=== PATIENT | female | born 1955 | race Caucasian/White ===

== ENCOUNTER 2017-07-16 12:16 | Inpatient (IN) ==
[2017-07-16] MEDS ORDERED: SODIUM CHLORIDE 0.9% 1,000 ML IV STA (12:40)
[2017-07-16] MEDS ORDERED: methylPREDNISolone SOD SUC 125 MG/2 ML VIAL IV STA (12:40)
[2017-07-16] MEDS ORDERED: LEVOFLOXACIN INJ 750 MG in PREMIX 1 EACH IV STA (12:40)
[2017-07-16] MEDS ORDERED: ALBUTEROL/IPRATROPIUM 3 ML NEB RESP TX STA (12:40)
[2017-07-16] MEDS ORDERED: methylPREDNISolone SOD SUC 125 MG/2 ML VIAL ONE (13:02)
[2017-07-16] MEDS ORDERED: ORPHENADRINE 60 MG/2 ML VIAL IV STA (13:31)
[2017-07-16] MEDS ORDERED: ORPHENADRINE 60 MG/2 ML VIAL ONE (13:32)
[2017-07-16] MEDS ORDERED: LEVOFLOXACIN INJ 150 ML IV ONE (13:35)
[2017-07-16 13:52] LABS: Basophils # 0.1 10*3/uL (0.0-0.2); Basophils % 0.5 % (0.0-0.8); Eosinophils # 0.5 10*3/uL (0.0-0.87); Eosinophils % 4.3 % (0.00-10.9); Hematocrit 29.4 VOL% (35.7-47.0); Hemoglobin 10.5 GM/DL (12.0-16.0); Immature Granulocytes % 2.1 %; Immature Granulocytes Absolute 0.26 #; Lymphocytes # 1.6 10*3/uL (1.4-4.0); Lymphocytes % 12.6 % (21.3-54.2); Mean Corpuscular HGB Conc 35.7 GM/DL (32-36); Mean Corpuscular Hemoglobin 31 PG (27-34); Mean Corpuscular Volume 85.5 FL (87-102); Mean Platelet Volume 9.4 FL (9.6-12.0); Monocytes # 1.3 10*3/uL (0.11-0.8); Monocytes % 10.4 % (1.7-12.7); Neutrophils # 8.7 10*3/uL (1.4-7.4); Neutrophils % 70.1 % (38.7-73.9); Platelet Count 428 T/CUMM (130-400); Red Blood Count 3.44 MC/CUMM (3.8-5.5); Red Cell Distribution Width 17.2 % (9.3-17.3); White Blood Count 12.4 T/CUMM (4-12)
[2017-07-16 13:59] LABS: INR 1.3; PT Patient Result 13.7 SECS
[2017-07-16 14:00] LABS: Apearance,Urine Slightly Hazy (Clear); Bacteria,Urine Occasional /HPF (Few); Bilirubin,Urine Negative (Negative); Blood, Urine Negative (Negative); Glucose,Urine (UA) Negative (Negative); Hyaline Casts,Urine 9 /LPF (0-3); Ketones,Urine Negative (Negative); Mucus,Urine Occasional /LPF (Occasional); Nitrite,Urine Negative (Negative); Protein,Urine Negative; RBC,Urine 2 /HPF (0-4); Squamous Epithelial Cell,Urine Occasional /HPF (0-10); Urine Color Yellow (Yellow); Urine Specific Gravity 1.014 (1.001-1.035); Urine Urobilinogen < 2.0 EU/DL (0.2-1.0); WBC,Urine 7 /HPF (0-6)
[2017-07-16 14:21] LABS: Alanine Aminotransferase 29 U/L (13-56); Albumin 1.5 G/DL (3.4-5.0); Alkaline Phosphatase 168 U/L (45-117); Amylase 18 U/L (25-115); Aspartate Amino Transferase 71 U/L (0-37); Blood Urea Nitrogen 74 MG/DL (7-18); Calcium 8.1 MG/DL (8.5-10.1); Glucose 83 MG/DL (74-106); Osmolality,Calculated 278.9 MOS/KG (273-304); Sodium 129 MMOL/L (136-145); Total Protein 6.3 G/DL (6.4-8.3); Troponin I Only < 0.015 NG/ML (0.00-0.045)
[2017-07-16 14:30] LABS: Lactic Acid 2.5 MMOL/L (0.4-2.0)
[2017-07-16 14:47] LABS: Potassium 6.7 MMOL/L (3.5-5.1)
[2017-07-16] MEDS ORDERED: CALCIUM CHLORIDE 1,000 MG/10 ML SYRINGE IV STA (14:48)
[2017-07-16] MEDS ORDERED: ALBUTEROL NEB SOLN 5 MG/ML 20 ML/BOTTLE CONT NEB STA (14:48)
[2017-07-16] MEDS ORDERED: DEXTROSE 50% 25 GM/50 ML VIAL IV STA (14:48)
[2017-07-16] MEDS ORDERED: INSULIN REGULAR 100 UNIT/ML IV STA (14:50)
[2017-07-16] MEDS ORDERED: SODIUM CHLORIDE 0.9% 2,000 ML IV STA (14:51)
[2017-07-16] MEDS ORDERED: CALCIUM CHLORIDE 1,000 MG/10 ML SYRINGE IV ONE (14:59)
[2017-07-16] MEDS ORDERED: DEXTROSE 50% 25 GM/50 ML SYRINGE IV ONE (14:59)
[2017-07-16] MEDS ORDERED: INSULIN REGULAR 100 UNIT/ML ONE (15:00)
[2017-07-16] MEDS ORDERED: SODIUM POLYSTYRENE SULFATE 15 GM/60 ML BOTTLE PO ONE (16:10)
[2017-07-16] MEDS ORDERED: hydrOXYzine HCL 10 MG TABLET PO PRN (16:12)
[2017-07-16] MEDS: ALBUTEROL 1.25 MG/3 ML NEB RESP TX SCH ×2 (19:25→23:56)
[2017-07-16] MEDS: SODIUM CHLORIDE 0.9% 1,000 ML IV SCH (19:39)
[2017-07-16 20:12] LABS: Lactic Acid 6.4 MMOL/L (0.4-2.0)
[2017-07-16] MEDS: NYSTATIN 500,000 UNIT/5 ML UDCUP PO SCH (20:46)
[2017-07-16] MEDS: MONTELUKAST 10 MG TABLET PO SCH (20:55)
[2017-07-16] MEDS: BUDESONIDE/FORMOTEROL 160-4.5 INHALER 6 GM INH SCH (20:55)
[2017-07-16 23:39] LABS: Lactic Acid 6.1 MMOL/L (0.4-2.0)
[2017-07-17 02:47] LABS: Basophils % 0.2 % (0.0-0.8); Eosinophils % 0.1 % (0.00-10.9); Hematocrit 29.3 VOL% (35.7-47.0); Immature Granulocytes % 4.2 %; Immature Granulocytes Absolute 0.58 #; Lymphocytes # 1.1 10*3/uL (1.4-4.0); Lymphocytes % 8.2 % (21.3-54.2); Mean Corpuscular HGB Conc 34.1 GM/DL (32-36); Mean Corpuscular Hemoglobin 30 PG (27-34); Mean Corpuscular Volume 87.5 FL (87-102); Mean Platelet Volume 9.2 FL (9.6-12.0); Monocytes # 0.3 10*3/uL (0.11-0.8); Monocytes % 1.9 % (1.7-12.7); Neutrophils # 11.8 10*3/uL (1.4-7.4); Neutrophils % 85.4 % (38.7-73.9); Platelet Count 417 T/CUMM (130-400); Red Blood Count 3.35 MC/CUMM (3.8-5.5); Red Cell Distribution Width 17.2 % (9.3-17.3); White Blood Count 13.8 T/CUMM (4-12)
[2017-07-17 02:56] LABS: Calcium 8.2 MG/DL (8.5-10.1); Osmolality,Calculated 281.8 MOS/KG (273-304)
[2017-07-17 02:59] LABS: Potassium 6.9 MMOL/L (3.5-5.1)
[2017-07-17] MEDS ORDERED: SODIUM POLYSTYRENE SULFATE 15 GM/60 ML BOTTLE PO ONE ×2 (03:06→07:45)
[2017-07-17 03:10] LABS: Band Neutrophils 2 % (0-10); Lymphocytes 10 % (20-55); Segmented Neutrophils 87 % (50-85)
[2017-07-17 03:13] LABS: Giant Platelets Few; Hypochromasia Slight; Platelet Estimate Increased; Polychromasia Few; Total Cells Counted 100
[2017-07-17] MEDS: SODIUM CHLORIDE 0.9% 1,000 ML IV SCH (03:41)
[2017-07-17] MEDS: ALBUTEROL 1.25 MG/3 ML NEB RESP TX SCH ×5 (04:30→19:13)
[2017-07-17] MEDS: ONDANSETRON 4 MG/2 ML VIAL IV PRN ×2 (06:04→10:38)
[2017-07-17] MEDS ORDERED: SODIUM POLYSTYRENE SULFATE 15 GM/60 ML BOTTLE RECTAL ONE (08:47)
[2017-07-17] MEDS: PROMETHAZINE 25 MG/1 ML VIAL IM PRN ×2 (08:59→15:59)
[2017-07-17] MEDS ORDERED: PANTOPRAZOLE 40 MG TABLET PO SCH (09:00)
[2017-07-17] MEDS: buPROPion SR 100 MG TABLET PO SCH (09:37)
[2017-07-17] MEDS: SERTRALINE 50 MG TABLET PO SCH (09:37)
[2017-07-17] MEDS: FLUTICASONE 50 MCG NASAL SPRAY 16 GM BOTTLE BOTH NARES SCH (09:38)
[2017-07-17] MEDS: BUDESONIDE/FORMOTEROL 160-4.5 INHALER 6 GM INH SCH ×2 (09:38→20:51)
[2017-07-17] MEDS: NYSTATIN 500,000 UNIT/5 ML UDCUP PO SCH ×2 (11:28→20:51)
[2017-07-17] MEDS: SODIUM CHLORIDE 23.4% CONC INJ 38.5 MEQ, SODIUM BICARB INJ 100 MEQ in STERILE WATER INJ... IV SCH (15:52)
[2017-07-17] MEDS: MONTELUKAST 10 MG TABLET PO SCH (20:51)
[2017-07-17] MEDS ORDERED: FAMOTIDINE 20 MG TABLET PO SCH (21:00)
[2017-07-18] MEDS: ALBUTEROL 1.25 MG/3 ML NEB RESP TX SCH ×5 (00:03→15:06)
[2017-07-18] MEDS: SODIUM CHLORIDE 23.4% CONC INJ 38.5 MEQ, SODIUM BICARB INJ 100 MEQ in STERILE WATER INJ... IV SCH (00:14)
[2017-07-18] MEDS: MORPHINE 4 MG/1 ML VIAL IV PRN ×2 (03:43→15:33)
[2017-07-18 05:42] LABS: Albumin 1.5 G/DL (3.4-5.0); Bilirubin,Total 1.2 MG/DL (0.2-1.0); Calcium 8.2 MG/DL (8.5-10.1); Osmolality,Calculated 283.7 MOS/KG (273-304); Total Protein 5.8 G/DL (6.4-8.3)
[2017-07-18 05:49] LABS: Potassium 7.3 MMOL/L (3.5-5.1)
[2017-07-18] MEDS ORDERED: CALCIUM GLUCONATE 1,000 MG in SODIUM CHLORIDE 0.9% 100 ML IV STA (06:01)
[2017-07-18] MEDS ORDERED: SODIUM BICARBONATE 50 MEQ/50 ML SYRINGE IV ONE ×2 (06:08→08:46)
[2017-07-18] MEDS ORDERED: DEXTROSE 50% 25 GM/50 ML VIAL IV ONE (06:08)
[2017-07-18] MEDS ORDERED: INSULIN REGULAR 100 UNIT/ML IV ONE (06:08)
[2017-07-18] MEDS ORDERED: SODIUM CHLORIDE 0.9% 1,000 ML IV ONE (06:10)
[2017-07-18 06:29] LABS: ABG Base Excess -16.1 MMOL/L (-2.5-2.5); ABG HCO3 8.6 MMOL/L (20-26); ABG PH 7.281 (7.35-7.45); ABG PO2 101.6 MM HG (80-95); ABG TCO2 9.1 MMOL/L (23-27)
[2017-07-18] MEDS ORDERED: PIPERACILLIN/TAZOBACTAM 3,375 MG in SODIUM CHLORIDE 0.9% 100 ML IV SCH (06:30)
[2017-07-18 06:33] LABS: ABG PCO2 18.6 MM HG (35-48)
[2017-07-18] MEDS ORDERED: SODIUM POLYSTYRENE SULFATE 15 GM/60 ML BOTTLE RECTAL ONE (06:53)
[2017-07-18] MEDS ORDERED: NOREPINEPHRINE 4 MG/4 ML VIAL IV ONE (06:54)
[2017-07-18] MEDS ORDERED: NOREPINEPHRINE 8 MG in SODIUM CHLORIDE 0.9% 242 ML IV PRN (06:59)
[2017-07-18 07:34] LABS: Lactic Acid 9.8 MMOL/L (0.4-2.0)
[2017-07-18] MEDS ORDERED: VANCOMYCIN INJ 2,500 MG in SODIUM CHLORIDE 0.9% 500 ML IV PRN (07:37)
[2017-07-18] MEDS ORDERED: ALBUMIN 25% 25 GM in PREMIX 1 EACH IV ONE ×2 (08:46→13:59)
[2017-07-18] MEDS ORDERED: CALCIUM GLUCONATE 1,000 MG in SODIUM CHLORIDE 0.9% 100 ML IV ONE (08:46)
[2017-07-18] MEDS ORDERED: PHENYLEPHRINE INJ 160 MG in SODIUM CHLORIDE 0.9% 234 ML IV PRN (08:55)
[2017-07-18] MEDS ORDERED: PHENYLEPHRINE DRIP 40 MG/250 ML PREMIX IV PRN (08:57)
[2017-07-18] MEDS: SODIUM BICARB INJ 150 MEQ in STERILE WATER INJ 850 ML IV SCH ×2 (09:35→17:35)
[2017-07-18] MEDS: BUDESONIDE/FORMOTEROL 160-4.5 INHALER 6 GM INH SCH (09:58)
[2017-07-18] MEDS: FLUTICASONE 50 MCG NASAL SPRAY 16 GM BOTTLE BOTH NARES SCH (09:58)
[2017-07-18] MEDS: NYSTATIN 500,000 UNIT/5 ML UDCUP PO SCH (09:59)
[2017-07-18] MEDS: SERTRALINE 50 MG TABLET PO SCH (09:59)
[2017-07-18 10:00] LABS: Albumin 1.6 G/DL (3.4-5.0); Bilirubin,Total 1.4 MG/DL (0.2-1.0); Calcium 8.6 MG/DL (8.5-10.1); Osmolality,Calculated 281.7 MOS/KG (273-304); Total Protein 6.3 G/DL (6.4-8.3)
[2017-07-18] MEDS ORDERED: VANCOMYCIN INJ 1,500 MG in SODIUM CHLORIDE 0.9% 500 ML IV ONE (10:00)
[2017-07-18 10:04] LABS: Potassium 7.2 MMOL/L (3.5-5.1)
[2017-07-18 10:36] LABS: Hepatitis A Ab IgM Result Negative (Negative); Hepatitis B Core IgM Quant 0.19 Index; Hepatitis B Core IgM Result Negative (Negative); Hepatitis B Surface Ag Quant 0.24 Index; Hepatitis B Surface Ag Result Negative (Negative); Hepatitis C Virus Ab Quant 0.28 Index; Hepatitis C Virus Ab Result Negative (Negative)
[2017-07-18] MEDS: buPROPion SR 100 MG TABLET PO SCH (11:10)
[2017-07-18] MEDS ORDERED: VANCOMYCIN INJ 2,500 MG in SODIUM CHLORIDE 0.9% 500 ML IV ONE (12:00)
[2017-07-18] MEDS ORDERED: LEVOFLOXACIN INJ 500 MG in PREMIX 1 EACH IV SCH (12:00)
[2017-07-18] MEDS ORDERED: NOREPINEPHRINE 16 MG in SODIUM CHLORIDE 0.9% 234 ML IV PRN (12:28)
[2017-07-18 17:20] VITALS: BP 42/26
== END 2017-07-18 17:22 | disposition expired | DRG 871 ==
LOC: EDUNIT# → N.ED 12:16 → N.EDINP 15:56 → N.3E 16:30 → N.CC 07-18 06:46